=== PATIENT | male | born 1955 | race Caucasian/White ===

== ENCOUNTER 2021-01-26 13:00 | Emergency (ER) | payer OTHER ==
--- NOTE | 2021-01-26 13:18 | EDM.PDOC ---
ED HPI GENERAL MEDICAL PROBLEM - General Chief Complaint: Trauma Stated Complaint: FALL-HEAD/ LT WRIST INJURY Time Seen by Provider: 01/26/21 13:05 Source of Information: Reports: Patient History Limitations: Reports: No Limitations - History of Present Illness INITIAL COMMENTS - FREE TEXT/NARRATIVE: 65-year-old male presents to the ED for evaluation of injuries sustained from a fall this morning. Patient states he was trying to load up a hose in the back of 1/2 ton and was standing in the box and missed stepped. This resulted in a fall headfirst onto [facility]. He has a contusion to the right forehead with ecchymosis of his right upper eyelid and lateral inferior eyelid. Is also suffered a contusion to the right lateral eye with subconjunctival hemorrhage. Vision is maintained. He was not wearing eye glasses or sunglasses at the time of injury. He denies any injury to his neck. He denies any injury to his chest wall. He has an abrasion proximally 1.5 cm in circumference oval-shaped dorsal aspect of right forearm. He has pain and swelling distal left forearm. Denies any injuries to his lower extremities. Patient states he is unable to use his left arm due to wrist pain. Injury occurred approximately 1015 hrs. this morning. He states his last tetanus diphtheria and pertussis vaccine was updated about 2 years ago. He is no longer on Plavix. He had a stent placed in his heart but 6 years ago and was on Plavix for the first 2 years after stenting. He does take a baby aspirin daily. Denies headache nausea or vomiting or feeling off balance since time of injury. He is seen in the ED 3 hours post injury. Onset: Today, Sudden Onset Date: 01/26/21 Onset Time: 10:15 Duration: Hour(s):, Constant (Pain left wrist forearm) Location: Reports: Upper Extremity, Left (Pain left distal radius and forearm. Inability to pronate supinate at the elbow.) Quality: Reports: Ache, Throbbing Severity: Moderate (7 out of 10.) Improves with: Reports: Rest Worsens with: Reports: Movement (Any attempts to flex or extend his wrist causes severe pain left wrist area.) Context: Reports: Trauma (Fell out of the back of a half-time truck approximately 3 and half feet to the surface. Injury occurred 3 hours ago.) Associated Symptoms: Reports: Cough, Malaise, Weakness. 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: Other (see below) (None.) Left Wrist Pain Score (Numeric/FACES): 8 - Related Data Allergies Allergy/AdvReac Type Severity Reaction Status Date / Time No Known Allergies Allergy Verified 07/23/15 08:23 Home Meds: Home Meds Aspirin [Low Dose Aspirin EC] 81 mg PO DAILY 07/10/15 [History] Levothyroxine 112 mcg PO ACBREAKFAST 07/10/15 [History] Spironolactone [Aldactone] 25 mg PO DAILY 07/10/15 [History] atorvaSTATin [Lipitor] 40 mg PO DAILY 07/10/15 [History] carvediloL [Coreg] 6.25 mg PO DAILY 07/10/15 [History] Past Medical History Cardiovascular History: Reports: Heart Failure, High Cholesterol, Hypertension, NC, Stents (Has 2 stents in his heart placed 6 years ago after a NC. He is no longer on Plavix. He is on baby aspirin only.) Respiratory History: Reports: COPD (From cigarette smoking.) Social & Family History - Tobacco Use Tobacco Use Status *Q: Current Every Day Tobacco User Years of Tobacco use: 60 Packs/Tins Daily: 0.7 - Caffeine Use Caffeine Use: Reports: Coffee - Recreational Drug Use Recreational Drug Use: No - Living Situation & Occupation Living situation: Reports: Occupation: Employed Review of Systems - Review of Systems Review Of Systems: See Below Constitutional: Denies: Chills, Diaphoresis, Fever, Weakness, Other Eyes: Reports: Blurred Vision (Feels that his upper eyelid is swollen and interfering a bit with his vision. No true visual acuity changes.), Other (Patient does not wear eyeglasses.) Ears: Reports: No Symptoms Nose: Reports: No Symptoms Mouth/Throat: Reports: No Symptoms Respiratory: Reports: Shortness of Breath (At times on exertion.). Denies: Wheezing, Pleuritic Chest Pain Cardiovascular: Reports: Edema (Slight by the end of the day). Denies: Chest Pain, Irregular Heart Rate ( in the ankles.), Lightheadedness, Palpitations, Syncope, Other GI/Abdominal: Reports: No Symptoms Genitourinary: Reports: Other (Urinary frequency. Nocturia x2 or 3.) Musculoskeletal: Reports: Neck Pain (Occasional neck pain and back pain.), Back Pain Skin: Reports: Bruising (Bruises fairly easily.) Neurological: Reports: No Symptoms Psychiatric: Reports: No Symptoms ED EXAM, GENERAL - Physical Exam Exam: See Below Exam Limited By: No Limitations General Appearance: Alert, WD/WN, No Apparent Distress, Other (Patient has an obvious abrasions and small hematoma right frontal forehead. He has some ecchymoses of his right upper eyelid which causes the eye to sag a bit or has a little bit of ptosis right eyelid. There is also some ecchymoses lateral inferior aspect of the lower eyelid. ) Eye Exam: Right Eye: Conjunctival Injection (Patient has a small subconjunctival hemorrhage right lateral eye.), Normal Fundi (No intraocular bleeding identified in the anterior posterior chamber on funduscopy.), Bilateral Eye: Periorbital Changes (Patient has ecchymoses and swelling medial upper eyelid which is causing some degree of ptosis. He also has mild ecchymoses lateral inferior portion of the lower eyelid.), PERRL Ears: Normal External Exam Nose: Normal Inspection Throat/Mouth: Normal Inspection, Normal Lips, Normal Teeth, Normal Oropharynx, Other (Patient has no injuries to the tongue teeth or maxilla. He can clench normally with normal teeth alignment.) Head: Facial Swelling (Patient has multiple pitting and swelling right forehead. He states he landed on scoria.) Neck: Normal Inspection, Supple, Non-Tender, Full Range of Motion. No: Carotid Bruit, Lymphadenopathy (L), Lymphadenopathy (R) Respiratory/Chest: No Respiratory Distress, Lungs Clear, Normal Breath Sounds, No Accessory Muscle Use. No: Rales, Rhonchi, Wheezing Cardiovascular: Normal Peripheral Pulses, Regular Rate, Rhythm, No Gallop, No Murmur, No Rub. No: No Edema Peripheral Pulses: 2+: Posterior Tibial (L), Posterior Tibial (R), Dorsalis Pedis (L), Dorsalis Pedis (R), 3+: Carotid (L), Carotid (R) GI/Abdominal: Normal Bowel Sounds, Soft, Non-Tender, No Organomegaly, No Distention, No Abnormal Bruit Back Exam: Normal Inspection, Full Range of Motion. No: CVA Tenderness (L), CVA Tenderness (R) Extremities: Pedal Edema (Trace at the ankles.), Arm Pain (Left wrist pain with swelling), Limited Range of Motion (Has limited pronation supination left upper extremity.), Other (Patient has a deep abrasion to the extensor surface of his right forearm. It measures approximate 1.5 cm in length. It is oval in shape. It is clean with skin completely lost. Nothing to suture. On the left upper extremity has significant swelling and decreased range of motion of the left wrist). No: Leg Pain Neurological: Alert, Oriented, CN II-XII Intact, Normal Cognition, Normal Gait, Normal Reflexes, No Motor/Sensory Deficits, Other. No: Disoriented Psychiatric: Normal Affect, Normal Mood Skin Exam: Warm, Dry, Intact, Normal Color, Other (Abrasion right extensor surface of forearm) ED TRAUMA PROCEDURES - Splinting Left Upper Extremity Splint Site: Lt forearm--below elbow orthoglass splint Pre-Procedure NV Status: Normal Post-Procedure NV Status: Normal Splint Material: Fiberglass Splint Design: Volar, Posterior Applied & Form Fitted By: Provider Provider Post-Splint Application NV Check: NV Status Normal Complications: No Course - Vital Signs Last Recorded V/S: Last Vital Signs Temp 36.8 C 01/26/21 13:07 Pulse 70 01/26/21 14:00 Resp 16 01/26/21 14:00 BP 139/87 01/26/21 14:00 Pulse Ox 96 01/26/21 14:00 - Radiology Interpretation Free Text/Narrative:: 65-year-old male presents to the ED after falling out of the back of 1/2 ton truck while rolling up some holes this morning. Injury occurred approximately 1015 hrs. History suggests that he landed on outstretched left hand with injury to the distal radius and ulna with significant swelling but no significant deformity in this area. He has limited pronation supination of the left forearm. He has a deep abrasion 1.5 cm in diameter dorsal aspect of his right forearm that is not amenable to suture ring. Wound will be cleansed and topical antibiotic applied. Other injuries are to his right forehead with significant dimpling of the skin or superficial puncture wounds from landing on scoria(rough rock surface).. He has associated ecchymoses medial aspect of his upper eyelid on the right side. He has a subconjunctival hemorrhage on the right lateral conjunctiva. No intraocular bleeding appreciated in anterior posterior chamber on funduscopy. He has some mild ecchymoses of the lateral right lower eyelid as well. He denies headache nausea or vomiting since time of injury which is 3 hours ago. Plan x-ray left forearm and wrist. - Re-Assessments/Exams Free Text/Narrative Re-Assessment/Exam: 01/26/21 13:35 the left wrist revealed a fracture distal left radius that is otherwise well aligned. Fracture does involve the diaphyseal- metaphyseal junction.However there is a significant tilt(ulnar) laterally. I will discussed the case with Dr. Samuel--orthopedic surgeon. 01/26/21 14:07 Dr Samuel--feels this is likely a anatomical variation with increased ulnar tilt. He suggests right wrist x-rays for comparison purposes. There is joint space narrowing noted within the radiocarpal joint. These will be ordered. 01/26/21 14:45: Comparison views of the right wrist done and they reveal a similar ulnar tilt as compared to the left side. There is a coincidental fracture of the scaphoid bone on the right side that the patient has no recollection of a old injury. Slight joint space narrowing is noted at the distal navicular bone as well. Small well-corticated calcification is noted posteriorly off the wrist compatible with old injury. Patient was therefore placed in a below elbow Ortho-Glass splint both volarly and dorsally. He lives in [facility] and does most of his doctoring in [place]. He prefers to follow-up with [facility] in [place]. I will therefore send the films to bone and joint by PACS. I will send a copy of his history and physical examination to bone and joint clinic per fax machine. Patient declined any pain medication. He states he can use Aleve or Motrin and has a very high pain tolerance. Departure - Departure Time of Disposition: 14:43 Disposition: Home, Self-Care 01 Condition: Fair Clinical Impression: Contusion of forehead Qualifiers: Encounter type: initial encounter Qualified Code(s): S00.83XA - Contusion of other part of head, initial encounter Colles' fracture of left radius Qualifiers: Encounter type: initial encounter Fracture type: closed Qualified Code(s): S52.532A - Colles' fracture of left radius, initial encounter for closed fracture Fracture of scaphoid bone of right wrist with malunion Qualifiers: Scaphoid bone location: middle third Fracture type: closed Fracture alignment: nondisplaced Qualified Code(s): S62.024P - Nondisplaced fracture of middle third of navicular [scaphoid] bone of right wrist, subsequent encounter for fracture with malunion Contusion of eyelid and periocular area Qualifiers: Encounter type: initial encounter Laterality: right Qualified Code(s): S00.11XA - Contusion of right eyelid and periocular area, initial encounter - Discharge Information *PRESCRIPTION DRUG MONITORING PROGRAM REVIEWED*: Not Applicable *COPY OF PRESCRIPTION DRUG MONITORING REPORT IN PATIENT ALLA: Not Applicable Instructions: Facial or Scalp Contusion, [id number], Wrist Fracture Treated With Immobilization, [id number] Referrals: Lala Myers MD [Primary Care Provider] - Forms: ED Department Discharge Additional Instructions: Evaluation in the emergency room today in regards to injuries sustained from a fall out of the back of 1/2 ton today. Landed on outstretched left hand which resulted in a Colles' fracture or fracture of the left distal radius bone which is on the thumb side of your wrist. X-rays reveal fairly close anatomical alignment. You have an increased ulnar tilt of the distal radius but on comparison films on the right side you have the same tilt which means this is the way you were made. Coincidentally on x-rays of your right wrist you do have a malunion or undiagnosed fracture of your right scaphoid bone. This is could be fixed if it is bothering you in the future but if this point time I would ig nore it. Other injuries sustained today were contusion with stippling of the right forehead from landing on scoria. You also have significant bruising developing on your upper eyelid and a little bit on the corner of your lower right eyelid and a subconjunctival hemorrhage which means contusion to the surface of the eye lateral aspect right eye. This is of no consequence think it is a bruise. It will take about 10 days to go through the close of a bruise to disappear on its own. There was no evidence of blood within your right eye visual field. You will need to be followed up by orthopedic surgeon likely by Tuesday for cast application to your left forearm due to fracture of the distal left radius. Please make an appointment with bone and joint clinic in [place] at [phone]. Please phone to make an appointment tomorrow or today. I will send your x-rays to their clinic so they will have them to read. Elevate the left arm is much as possible about the level of your heart to prevent it from swelling excessively. May apply ice pack even through the splint over the wrist for 1/2-hour out of every 4 hours today and tomorrow. If the ring on your index finger gets too tight you will need to be cut off. This may occur sometime over the next 48 hours as when we cannot make a fist or move her hand much the hand and fingers will swell. Especially if it is hot outside. Suggest Motrin 600 mg every 6 hours or Aleve 2 tablets every 8 hours to relieve pain. May also take Tylenol 650 mg every 4 hours if needed. Sepsis Event Note (ED) - Evaluation Sepsis Screening Result: No Definite Risk - Focused Exam Vital Signs: Vital Signs Temp Pulse Resp BP Pulse Ox 01/26/21 14:00 70 16 139/87 96 01/26/21 13:07 36.8 C 72 16 145/99 H 97
[2021-01-26 15:20] VITALS: BP 139/87; PULSE 70
--- NOTE | 2021-01-26 15:57 | CR ---
Right wrist: 2 views of the right wrist were obtained. Comparison: No prior right wrist exam is available. Slight joint space narrowing is noted at the distal navicular bone. Small well-corticated calcification is noted posteriorly off the wrist compatible with old injury. No acute fracture or dislocation is seen. Impression: 1. Nothing acute is seen on 2 view right wrist exam. 2. Other findings believed to be incidental as noted above. Diagnostic code #2
--- NOTE | 2021-01-26 15:59 | CR ---
Left forearm: 2 views of the left forearm were obtained. Comparison: No prior study. Soft tissue swelling is seen. Fracture is identified within the distal radius involving the diaphyseal/metaphyseal junction. There is joint space narrowing noted within the radiocarpal joint. No additional osseous abnormality is appreciated. Impression: 1. Distal radial fracture. 2. Soft tissue swelling and degenerative change. Diagnostic code #3
--- NOTE | 2021-01-26 16:00 | CR ---
Left wrist: 4 views of the left wrist were obtained. Comparison: Prior left forearm study performed on the same day. Nondisplaced fracture is seen within the distal radius at the diaphyseal/metaphyseal junction. Small bony density is noted between the distal first and second metacarpal bases compatible with a small chip fracture which most likely is off the trapezium. Joint space narrowing is seen within the CMC joint of the thumb. Joint space narrowing noted within the joint between the radius and carpal bones. No additional fracture or other bony abnormality is appreciated. Impression: 1. Nondisplaced distal radial fracture and small chip fracture off the probable trapezium. 2. Soft tissue swelling and degenerative change. Diagnostic code #3
== END 2021-01-26 15:02 | disposition home or self-care (01) ==
LOC: JD.ED 13:00
DX: S52.532A Colles' fracture of left radius, initial encounter for closed fracture (principal); S62.0 Fracture of navicular [scaphoid] bone of wrist; S00.11XA Contusion of right eyelid and periocular area, initial encounter; J44.9 Chronic obstructive pulmonary disease, unspecified; I11.0 Hypertensive heart disease with heart failure; I50.9 Heart failure, unspecified; I25.2 Old myocardial infarction; Z79.899 Other long term (current) drug therapy; W17.89XA Other fall from one level to another, initial encounter
CPT/HCPCS: 29125; 73090-26-LT; 73090-LT; 73100-26-RT; 73100-RT; 73110-26-LT; 73110-LT; 99283; 99283-25